=== PATIENT | female | born 1945 | race Caucasian/White ===

== ENCOUNTER 2017-03-23 07:10 | Outpatient (CLI) | payer BC ==
--- NOTE | 2017-03-24 18:37 | Mammography Report ---
DIGITAL SCREENING MAMMOGRAM: 03/23/2017 CLINICAL INDICATION: A 72-year-old for screening. COMPARISON: 08/2013, 07/2011, 09/2009. TECHNIQUE: Routine CC and MLO projections were obtained of the breasts. FINDINGS: Parenchymal tissue within both breasts is heterogeneously dense, which may lower the sensi tivity of mammography; however, there are no dominant masses, suspicious microcalcifications, or seco ndary signs of malignancy. In comparison to the previous studies, there are no significant changes. ASSESSMENT: NO MAMMOGRAPHIC EVIDENCE OF MALIGNANCY. NO SIGNIFICANT INTERVAL CHANGES. RECOMMENDATION: Screening mammography is recommended annually. BIRADS category 1 - negative. STANDARD QUALIFYING STATEMENTS 1. This examination was reviewed with the aid of Computed-Aided Detection (CAD). 2. A negative or benign imaging report should not delay biopsy if clinically suspicious findings are present. Consider surgical consultation if warranted. More than 5% of cancers are not identified b y imaging. 3. Dense breasts may obscure an underlying neoplasm. JOB #: [id number] EXT JOB #:[id number]
== END 2017-03-23 07:11 | disposition home or self-care (01) ==
LOC: DI 07:10
PROVIDERS: ATTEND Physician Assistant Medical
DX: Z12.31 Encounter for screening mammogram for malignant neoplasm of breast (principal)
CPT/HCPCS: 77067

== ENCOUNTER 2018-11-17 08:00 | Outpatient (CLI) | payer MEDICARE, OTHER ==
[2018-11-17 19:02] LABS: BASOPHILS % (AUTO) 0.7 %; EOSINOPHILS # (AUTO) 0.1 10^3/uL (0.0-0.7); EOSINOPHILS % (AUTO) 1.7 %; HGB - HEMOGLOBIN 13.2 g/dL (12.0-16.0); LYMPHOCYTES # (AUTO) 1.3 10^3/uL (1.5-3.5); LYMPHOCYTES % (AUTO) 34.2 %; MEAN CORPUSCULAR HEMOGLOBIN 29.4 pg (27.0-31.0); MEAN CORPUSCULAR HGB CONC 32.2 g/dL (32.0-36.0); MEAN CORPUSCULAR VOLUME 91.3 fL (81.0-99.0); MEAN PLATELET VOLUME 9.2 fL (7.9-10.8); MONOCYTES # (AUTO) 0.8 10^3/uL (0.0-1.0); MONOCYTES % (AUTO) 21.2 %; NEUTROPHILS # (AUTO) 1.7 10^3/uL (1.5-6.6); NEUTROPHILS % (AUTO) 42.2 %; PLT - PLATELET COUNT 242 10^3/uL (130-450); RED CELL DISTRIBUTION WIDTH 13.5 % (12.0-15.0); WHITE BLOOD COUNT 3.9 x10^3/uL (4.8-10.8)
[2018-11-17 19:10] LABS: ALBUMIN 4.1 g/dL (3.2-5.5); ALBUMIN/GLOBULIN RATIO 1.4 (1.0-2.2); BILIRUBIN,TOTAL 0.6 mg/dL (0.2-1.0); CREATININE 0.7 mg/dL (0.4-1.0); TOTAL PROTEIN 7.1 g/dL (6.7-8.2)
== END 2018-11-17 23:59 ==
LOC: LAB.WCP 08:00
PROVIDERS: ATTEND Family Medicine
DX: I10 Essential (primary) hypertension (principal); J06.9 Acute upper respiratory infection, unspecified
CPT/HCPCS: 36415; 80053; 85025

== ENCOUNTER 2019-11-06 14:59 | Outpatient (CLI) | payer MEDICARE, OTHER ==
--- NOTE | 2019-11-14 16:51 | Mammography Report ---
Reason: ROUTINE MAMMO Procedure Date: 11/06/2019 Accession Number: [id number] / [id number] Procedure: MGN - Screening Mammo w/Alexandre CPT Code: Final Report FULL RESULT: EXAM: Screening Mammo w/Alexandre DATE: 11/06/2019 3:32 PM CLINICAL HISTORY: Screening encounter. TECHNIQUE: (B) - Bilateral CC and MLO views were obtained. COMPARISON: 03/23/2017 through 09/17/2009. PARENCHYMAL PATTERN: (A) - The breast(s) demonstrate(s) scattered fibroglandular densities. FINDINGS: There are no suspicious masses, calcifications, or areas of distortion. IMPRESSION: Negative examination. BI-RADS category 1. RECOMMENDATION: (ANNUAL) - Recommend routine annual screening mammography. BI-RADS CATEGORY: (1) - Negative. STANDARD QUALIFYING STATEMENTS: 1. This examination was not reviewed with the aid of Computer-Aided Detection (CAD). 2. A negative or benign imaging report should not preclude biopsy if clinically suspicious findings are present. 3. Dense breasts may obscure an underlying neoplasm. 4. This examination was reviewed with the aid of 3D breast imaging (tomosynthesis).
== END 2019-11-06 15:00 | disposition home or self-care (01) ==
LOC: DI.N 14:59
PROVIDERS: ATTEND Family Medicine
DX: Z12.31 Encounter for screening mammogram for malignant neoplasm of breast (principal)
CPT/HCPCS: 77063; 77067

== ENCOUNTER 2020-09-03 16:37 | Outpatient (CLI) | payer MEDICARE, OTHER | END 2020-09-03 16:38 | disposition home or self-care (01) | LOC: COV 16:37 | PROVIDERS: ATTEND Family Medicine | DX: R53.83 Other fatigue (principal); R68.83 Chills (without fever); R19.7 Diarrhea, unspecified; Z20.828 Contact with and (suspected) exposure to other viral communicable diseases ==

== ENCOUNTER 2020-10-08 08:00 | Outpatient (CLI) | payer MEDICARE, OTHER ==
[2020-10-08 12:00] LABS: BASOPHILS % (AUTO) 0.6 %; EOSINOPHILS # (AUTO) 0.1 10^3/uL (0.0-0.7); EOSINOPHILS % (AUTO) 2.1 %; HGB - HEMOGLOBIN 12.6 g/dL (12.0-16.0); LYMPHOCYTES % (AUTO) 41.2 %; MEAN CORPUSCULAR HEMOGLOBIN 29.5 pg (27.0-31.0); MEAN CORPUSCULAR HGB CONC 31.6 g/dL (32.0-36.0); MEAN CORPUSCULAR VOLUME 93.4 fL (81.0-99.0); MEAN PLATELET VOLUME 10.5 fL (7.9-10.8); MONOCYTES # (AUTO) 0.4 10^3/uL (0.0-1.0); MONOCYTES % (AUTO) 7.4 %; NEUTROPHILS # (AUTO) 2.4 10^3/uL (1.5-6.6); NEUTROPHILS % (AUTO) 48.5 %; PLT - PLATELET COUNT 312 10^3/uL (130-450); RED BLOOD COUNT 4.27 10^6/uL (4.20-5.40); RED CELL DISTRIBUTION WIDTH 12.4 % (12.0-15.0); WHITE BLOOD COUNT 4.9 x10^3/uL (4.8-10.8)
[2020-10-08 12:30] LABS: ALBUMIN 4.1 g/dL (3.2-5.5); ALBUMIN/GLOBULIN RATIO 1.4 (1.0-2.2); ALKALINE PHOSPHATASE 90 IU/L (42-121); ALT ALANINE AMINOTRANSFERASE 11 IU/L (10-60); AST ASPARTATE AMINOTRANSFERASE 19 IU/L (10-42); BILIRUBIN,TOTAL 0.5 mg/dL (0.2-1.0); BUN - BLOOD UREA NITROGEN 16 mg/dL (6-20); CALCIUM 9.5 mg/dL (8.5-10.3); CARBON DIOXIDE - CO2 27 mmol/L (21-32); CHLORIDE 107 mmol/L (101-111); CHOL/HDL RATIO 2.8 (<4.4); CHOLESTEROL 224 mg/dL; GLUCOSE 98 mg/dL (70-100); HDL CHOLESTEROL 81 mg/dL; LDL CHOLESTEROL,CALCULATED 122 mg/dL; LDL/HDL RATIO 1.5 (<4.4); TOTAL PROTEIN 7.1 g/dL (6.7-8.2); VLDL CHOLESTEROL 21 mg/dL
== END 2020-10-08 23:59 | disposition home or self-care (01) ==
LOC: LAB.WCP 08:00
PROVIDERS: ATTEND Nurse Practitioner
DX: R53.83 Other fatigue (principal); R42 Dizziness and giddiness; R03.0 Elevated blood-pressure reading, without diagnosis of hypertension
CPT/HCPCS: 36415; 80053; 80061; 83721; 84443; 85025

== ENCOUNTER 2020-10-31 14:47 | Outpatient (CLI) | payer MEDICARE, OTHER ==
--- NOTE | 2020-10-31 15:58 | DEXA Report ---
PROCEDURE: Dexa Spine and/or Hip INDICATIONS: MENOPAUSE TECHNIQUE: Dual energy x-ray absorptiometry (DXA) was performed on a [employer] System. Regions measur ed are the AP Spine, femoral neck, and if needed forearm. COMPARISON: 08/22/2013 FINDINGS: Lumbar Spine: Bone Mineral Density 1.086 g/cm/cm,T score -0.7, normal bone mineral density Left Femoral Neck: Bone Mineral Density 0.823 g/cm/cm, T score -1.5, osteopenia (T score greater or equal to -1.0: NORMAL) (T score from -1.1 to -2.4: OSTEOPENIA) (T score less than or equal to -2.5 to: OSTEOPOROSIS) Impression: OSTEOPENIA. Patient is at increased risk for fracture. Patients with diagnosis of osteoporosis or osteopenia should have regular bone mineral density assess ment. For those eligible for Medicare, routine testing is allowed once every 2 years. Testing frequ ency can be increased for patients who have rapidly progressing disease or for those who are receivin g medical therapy to restore bone mass. Reviewed by: Tre Ramos MD on 10/31/2020 3:57 PM PST Approved by: Tre Ramos MD on 10/31/2020 3:57 PM PST Station ID: [id number]
== END 2020-10-31 14:48 | disposition home or self-care (01) ==
LOC: DI 14:47
PROVIDERS: ATTEND Nurse Practitioner
DX: M85.89 Other specified disorders of bone density and structure, multiple sites (principal); Z78.0 Asymptomatic menopausal state

== ENCOUNTER 2020-10-31 14:50 | Outpatient (CLI) | payer MEDICARE, OTHER ==
--- NOTE | 2020-11-04 10:16 | Mammography Report ---
BILATERAL DIGITAL SCREENING MAMMOGRAM 3D/2D: 10/31/2020 CLINICAL: Routine screening. Comparison is made to exams dated: 11/06/2019 mammogram, 03/23/2017 mammogram, 08/22/2013 mammogram, a nd 07/14/2011 mammogram - [facility]. The tissue of both breasts is predominantly f atty. No significant masses, calcifications, or other findings are seen in either breast. There has been no significant interval change. IMPRESSION: NEGATIVE There is no mammographic evidence of malignancy. A 1 year screening mammogram is recommended. This exam was interpreted at Station ID: [id number]. NOTE: For mammograms, a report in lay terms will be sent to the patient. Approximately 15% of breast malignancies will not be visualized mammographically. In the management of a palpable breast mass, a negative mammogram must not discourage biopsy of a clinically suspicious lesion. Electronically Signed By: Fabrizio Turner acr/penrad:11/01/2020 19:46:19 ACR BI-RADS Category 1: Negative 3341F PARENCHYMAL PATTERN: (F) - The breast(s) demonstrate(s) diffuse fatty replacement. BI-RADS CATEGORY: (1) - 1 RECOMMENDATION: (ANNUAL) - Recommend routine annual screening mammography. [id number] 1 year screening LATERALITY: (B)
== END 2020-10-31 14:51 | disposition home or self-care (01) ==
LOC: DI 14:50
PROVIDERS: ATTEND Nurse Practitioner
DX: Z12.31 Encounter for screening mammogram for malignant neoplasm of breast (principal)

== ENCOUNTER 2023-06-20 10:12 | Emergency (ER) | payer MEDICARE, OTHER ==
--- OUTSIDE RECORDS SUMMARY | 2023-06-20 10:31 | EXTERNAL MEDICAL SUMMARY RPT | Continuity of Care Document ---
Author Name Unknown Address [address] [place] [address] Phone Organization [facility] Address [address] [place] [address] Phone Care Team Providers Care Bathhouse Keeper Name Role Phone Dwyane yAala Unavailable Unavailable Social History date description facility 2023-06-09 00:00 Never smoked tobacco ([facility] Vital Signs date measurement value units 2023-06-09 00:00 BMI 25.2 kg/m2 2023-06-09 00:00 BP_diastolic 98 mmHg 2023-06-09 00:00 BP_systolic 160 mmHg 2023-06-09 00:00 heart_rate 55 /min 2023-06-09 00:00 height_metric 162.56 cm 2023-06-09 00:00 height_standard 64 in 2023-06-09 00:00 o2_saturation 97 % 2023-06-09 00:00 weight_metric 66.73 kg 2023-06-09 00:00 weight_standard 147.11 lb
--- NOTE | 2023-06-20 10:43 | XRAY Report ---
PROCEDURE: Chest 1 View X-Ray INDICATIONS: Productive cough, fever. TECHNIQUE: One view of the chest was acquired. COMPARISON: None. FINDINGS: Surgical changes and devices: None. Lungs and pleura: No pleural effusions or pneumothorax. Lungs are clear. Mediastinum: Mediastinal contours appear normal. Heart size is normal. Bones and chest wall: No suspicious bony lesions. Scoliosis. Overlying soft tissues appear unremarka ble. IMPRESSION: No acute cardiopulmonary process. Reviewed by: Ej Barroso MD on 06/20/2023 10:42 AM PDT Approved by: Ej Barroso MD on 06/20/2023 10:42 AM PDT Station ID: [id number]
[2023-06-20] MEDS ORDERED: DEXAMETHASONE 10 MG/ML VIAL PO STA (12:02)
[2023-06-20] MEDS ORDERED: CHERRY SYRUP 10 ML UDC PO ONE (12:02)
--- NOTE | 2023-06-20 12:02 | ED Physician Documentation ---
PD HPI URI - Stated complaint Stated Complaint: SOA/COUGH - Chief complaint Chief Complaint: Resp - History obtained from History obtained from: Patient, Family (granddaughter Kristi) - History of Present Illness Timing - onset: How many days ago (4) Timing duration: Days (4) Timing details: Gradual onset, Still present Associated symptoms: Nasal congestion, Productive cough, Dyspnea. No: Ear pain Improves by: Rest Similar symptoms before: Diagnosis (bronchitis) Recently seen: Not recently seen - Additional information Additional information: Joie Benton is an 78-year-old female who has developed a cough and congestion 4 days ago. She has been coughing up a scant amount of yellow phlegm. She denies any pain to her ears she has a slight sore throat she denies sinus pain. She has had some wheezing this morning. She is breathing well now. She tested for COVID and it was negative yesterday. She has a chief complaint of cough which is paroxysmal. She feels that today is better than yesterday with the exception of when she woke up this morning with some shortness of breath. Review of Systems Constitutional: reports: Fever Eyes: denies: Decreased vision Ears: denies: Ear pain Nose: reports: Congestion Throat: reports: Sore throat Cardiac: denies: Chest pain / pressure, Palpitations Respiratory: reports: Dyspnea, Cough GI: denies: Nausea, Vomiting : denies: Dysuria, Frequency Musculoskeletal: denies: Neck pain, Back pain, Extremity pain PD PAST MEDICAL HISTORY - Present Medications Home Medications: Ambulatory Orders Medication Instructions Recorded Confirmed Benzonatate [Tessalon] 100 - 200 mg PO TID PRN #30 cap 06/20/23 Gabapentin [Neurontin] 300 mg ORAL DAILY PM 06/20/23 06/20/23 Losartan [Cozaar] 50 mg ORAL DAILY 06/20/23 06/20/23 Meloxicam 15 mg PO DAILY 06/20/23 06/20/23 Omeprazole Magnesium 20 mg PO DAILY 06/20/23 06/20/23 - Allergies Allergies/Adverse Reactions: Allergies Allergy/AdvReac Type Severity Reaction Status Date / Time No Known Drug Allergies Allergy Verified 06/20/23 10:24 PD ED PE NORMAL - Vitals Vital signs reviewed: Yes (normal ) - General General: Alert and oriented X 3, No acute distress, Well developed/nourished - HEENT HEENT: Atraumatic, PERRL, EOMI, Ears normal, Moist mucous membranes, Pharynx benign, Other (dental plates in place) - Neck Neck: Supple, no meningeal sign, No bony TTP - Cardiac Cardiac: RRR, No murmur - Respiratory Respiratory: No respiratory distress, Clear bilaterally - Abdomen Abdomen: Soft, Non tender, Non distended - Back Back: No CVA TTP, No spinal TTP - Derm Derm: Normal color, Warm and dry, No rash - Extremities Extremities: No deformity, No edema - Neuro Neuro: Alert and oriented X 3, unbundler 2-12 intact, No motor deficit, No sensory deficit, Normal speech Eye Opening: Spontaneous Motor: Obeys Commands Verbal: Oriented GCS Score: 15 - Psych Psych: Normal mood, Normal affect Results - Vitals Vitals: Vital Signs - 24 hr 06/20/23 06/20/23 10:21 11:53 Temperature 36.4 C L Heart Rate 97 86 Respiratory 20 18 Rate Blood Pressure 127/76 143/91 H O2 Saturation 98 96 Oxygen O2 Source Room air - Rads (name of study) chest Relevant Findings:: Prelim report reviewed (Impression: No acute cardiopulmonary process), EMP independent interpretation of test, See rad report PD Medical Decision Making - ED course Complexity details: reviewed old records, reviewed results, re-evaluated patient, considered differential, d/w patient, d/w family ED course: Joie Benton is an 78-year-old female who has developed a cough and congestion beginning about 4 days ago she has tested for COVID and is negative. Today her chest x-ray is clear as are examination of her ear nose and throat. I do not find an area or nidus of bacterial infection to treat specifically. I believe the patient likely has a viral URI. She did have some wheezing this morning and we are giving her a dose of dexamethasone. I am expecting the patient to have improvement over the next several days and resolution by the end of the week. Departure - Departure Disposition: 01 Home, Self Care Clinical Impression: Upper respiratory tract infection Qualifiers: URI type: unspecified viral URI Qualified Code(s): J06.9 - Acute upper respiratory infection, unspecified Condition: Stable Instructions: ED Upper Resp Infec No Abx Tx Follow-Up: Jamie,Dwayne A, LOGGING WORKER [Primary Care Provider] - Prescriptions: Benzonatate [Tessalon] 100 - 200 mg PO TID PRN #30 cap PRN Reason: Cough Comments: Joie, today it looks like there is no evidence of a pneumonia on your chest x-ray and we did not find evidence of specific bacterial infection to treat with antibiotic. This looks like a viral upper respiratory tract infection and the expectation is resolution in the 7 to 10 days timeframe. Today we gave you a do se of dexamethasone on day 4 of your illness and this should last about 2 days of generalized improvement. The expectation is resolution by the end of the week. I have E scribed some Tessalon Perles which are for cough to the [facility] in [place].
[2023-06-20 12:21] VITALS: BP 137/77; O2SAT 95
== END 2023-06-20 12:16 | disposition home or self-care (01) ==
LOC: ED 10:12
DX: J06.9 Acute upper respiratory infection, unspecified (principal); Z79.899 Other long term (current) drug therapy
CPT/HCPCS: 71045; 99283; A9270

== ENCOUNTER 2023-06-23 08:00 | Outpatient (CLI) | payer MEDICARE, OTHER | END 2023-06-23 23:59 | disposition home or self-care (01) | LOC: LAB.WCP 08:00 | PROVIDERS: ATTEND Family Medicine | DX: J20.9 Acute bronchitis, unspecified (principal); Z20.822 Contact with and (suspected) exposure to COVID-19 ==

== ENCOUNTER 2023-08-18 08:59 | Outpatient (CLI) | payer MEDICARE, OTHER | END 2023-08-18 09:00 | disposition left against medical advice (07) | LOC: EMS 08:59 | DX: R06.02 Shortness of breath (principal); R52 Pain, unspecified; R05.9 Cough, unspecified ==

== ENCOUNTER 2023-12-11 08:10 | Emergency (ER) | payer MEDICARE, OTHER ==
[2023-12-11 08:25] VITALS: BP 135/47; O2SAT 98
[2023-12-11] MEDS: LIDOCAINE 1% 2 ML VIAL SUBQ STA (08:39)
--- NOTE | 2023-12-11 09:12 | ED Physician Documentation ---
PD HPI UPPER EXT INJURY - Stated complaint Stated Complaint: RT FINGER LAC - Chief complaint Chief Complaint: Trauma Ext - History obtained from History obtained from: Patient - History of Present Illness Location: Right, Finger (index) Type of injury: Laceration Where injury occurred: Home Timing - onset: Enter time (1200), Yesterday Timing - duration: Days (1) Timing - details: Abrupt onset, Still present Improved by: Rest Worsened by: Moving, Palpating Associated symptoms: No: Weakness, Numbness, Tingling, Swelling, Discolored Contributing factors: Anticoagulated Similar symptoms before: Diagnosis (laceration) Recently seen: Not recently seen - Additonal information Additional information: Previously well Joie Benton is an 78-year-old female who was opening a can yesterday when she lacerated the dorsal surface of her right index finger on the metal edge of the can. She cleaned the area out she is coming today for suturing she is having some issue with intermittent oozing and bleeding she is on Eliquis for atrial fibrillation. Review of Systems Constitutional: denies: Fever Nose: denies: Congestion Throat: denies: Sore throat Respiratory: denies: Cough GI: denies: Vomiting Skin: reports: Laceration (s) PD PAST MEDICAL HISTORY - Past Medical History Cardiovascular: Hypertension, Atrial fibrillation Respiratory: None Neuro: None Endocrine/Autoimmune: None GI: GERD LEARNING COACH: None : None HEENT: None Psych: None Musculoskeletal: Chronic back pain Derm: None - Past Surgical History Past Surgical History: No - Present Medications Home Medications: Ambulatory Orders Medication Instructions Recorded Confirmed Gabapentin [Neurontin] 300 mg ORAL DAILY PM 06/20/23 12/11/23 Losartan [Cozaar] 25 mg ORAL DAILY 06/20/23 12/11/23 Omeprazole Magnesium 20 mg PO DAILY 06/20/23 12/11/23 Amiodarone [Pacerone] 50 mg PO DAILY 12/11/23 12/11/23 Apixaban [Eliquis] 5 mg PO BID 12/11/23 12/11/23 amLODIPine [Norvasc] 5 mg PO DAILY 12/11/23 12/11/23 - Allergies Allergies/Adverse Reactions: Allergies Allergy/AdvReac Type Severity Reaction Status Date / Time No Known Drug Allergies Allergy Verified 12/11/23 08:20 - Social History Does the pt smoke?: No Smoking Status: Never smoker Does the pt drink ETOH?: No Does the pt have substance abuse?: No - Immunizations Immunizations are current?: Yes PD ED PE NORMAL - Vitals Vital signs reviewed: Yes (bradycardic and hypertensive with wide pulse pressure) - General General: Alert and oriented X 3, No acute distress, Well developed/nourished - HEENT HEENT: Atraumatic, PERRL, EOMI - Respiratory Respiratory: No respiratory distress - Derm Derm: Normal color, Warm and dry, No rash - Extremities Extremities: No deformity, No edema, Other (over the PIP joint of the 2nd digit on the right hand is a 1.5cm laceration over the knuckle without involvement of deeper structures and no foreign material. distal n/v intact.) - Neuro Neuro: Alert and oriented X 3, medical social consultant 2-12 intact, No motor deficit, No sensory deficit, Normal speech Eye Opening: Spontaneous Motor: Obeys Commands Verbal: Oriented GCS Score: 15 - Psych Psych: Normal mood, Normal affect Results - Vitals Vitals: Vital Signs - 24 hr 12/11/23 08:12 Temperature 35.7 C L Heart Rate 44 L Respiratory 18 Rate Blood Pressure 135/47 H O2 Saturation 98 Oxygen O2 Source Room air Procedures - Laceration (location) right index Length in cm: 1.5 Wound type: Linear, Into subcut fat, Clean Neurovascular status: Sensory intact, Motor intact, Vascular intact Tendon involvement: Tendon intact Anesthesia: Lidocaine 1% Wound preparation: Hibiclens, Irrigated copiously NS, Wound explored, To the base Skin layer closure: Nylon, Interrupted, Size #-0 - enter number (5-0), Sutures - enter # (3) Other: Patient tolerated well, No complications, Neurovascular intact, Dressing applied, Tetanus UTD PD Medical Decision Making - ED course Complexity details: considered differential, d/w patient ED course: Simple clean laceration in an anticoagulated patient is sutured. Departure - Departure Disposition: 01 Home, Self Care Clinical Impression: Finger laceration Qualifiers: Encounter type: initial encounter Finger: index finger Damage to nail status: without damage Foreign body presence: without foreign body Laterality: right Qualified Code(s): S61.210A - Laceration without foreign body of right index finger without damage to nail, initial encounter Condition: Stable Instructions: ED Laceration Hand Follow-Up: your, doctor [Other] Comments: Joie, our expectation with this laceration are that it gives you little or no problems and the sutures will need to be removed in about 10 days. There is expected some redness and irritation at about day #3 from normal healing. This redness should not extend more than 1 to 3 mm from the edge of the wound. There should be no significant drainage.
== END 2023-12-11 09:17 | disposition home or self-care (01) ==
LOC: ED 08:10
DX: S61.210A Laceration without foreign body of right index finger without damage to nail, initial encounter (principal); W26.8XXA Contact with other sharp object(s), not elsewhere classified, initial encounter; I48.91 Unspecified atrial fibrillation; Z79.01 Long term (current) use of anticoagulants; I10 Essential (primary) hypertension; K21.9 Gastro-esophageal reflux disease without esophagitis; Y92.009 Unspecified place in unspecified non-institutional (private) residence as the place of occurrence of the external cause
CPT/HCPCS: 12001; 99282